=== PATIENT | male | born 1955 | race Hispanic/Latino ===

== ENCOUNTER → 2021-03-30 | Outpatient (CLI) | payer MEDICARE | END | disposition home or self-care (01) | LOC: RAH 08:28 | PROVIDERS: ATTEND Internal Medicine | DX: I08.3 Combined rheumatic disorders of mitral, aortic and tricuspid valves (principal); I10 Essential (primary) hypertension; E78.5 Hyperlipidemia, unspecified; Z87.891 Personal history of nicotine dependence; I77.810 Thoracic aortic ectasia | CPT/HCPCS: 93306; 93356 ==

== ENCOUNTER → 2025-03-25 | Outpatient (CLI) | payer OTHER, MEDICAID ==
--- NOTE | 2025-03-25 15:38 | HMCIMG ---
SHOULDER COMP 2+VWS LT REASON: Pain in right shoulder; Pain in left shoulder TECHNIQUE: 2 views were obtained. FINDINGS: There is no evidence of fracture or dislocation. There is no joint effusion. The soft tissues appear unremarkable. There is no evidence of a radiopaque foreign body. There are 3 tacking device seen in the lateral aspect of the left humeral head. There is mild osteopenia. The AC joint appears to be normal. IMPRESSION: No acute findings. Osteopenia
--- NOTE | 2025-03-25 15:38 | HMCIMG ---
SHOULDER COMP 2+VWS RT REASON: Pain in right shoulder; Pain in left shoulder TECHNIQUE: 2 views were obtained. FINDINGS: There is no evidence of fracture or dislocation. There is no joint effusion. The soft tissues appear unremarkable. There is no evidence of a radiopaque foreign body. The right AC joint appears normal. There is osteopenia IMPRESSION: No acute findings. Osteopenia
--- NOTE | 2025-03-25 15:53 | HMCIMG ---
Lumbar spine series including lateral flexion and extension views Comparison Study: none History: Radiculopathy, lumbar region Findings: Exam of the lumbosacral spine demonstrates no evidence of fracture, subluxation, or significant degenerative change. There is dextroscoliosis of the lumbar spine with the apex at L3.. The lateral flexion and extension views demonstrate no abnormal motion. There are spondylitic changes and degenerative changes of the facet joints. The disc spaces are intact. There are marginal spur suggesting of osteoarthritic changes. The facet joints are preserved without significant degenerative changes Bone mineralization is normal. Impression: Dextroscoliosis of the lumbar spine with the apex at L3. No abnormal motion on flexion-extension lateral views. There are degenerative changes as noted.
--- NOTE | 2025-03-25 15:56 | HMCIMG ---
KNEE/PATELLA 1-2VWS LT REASON: Pain in right knee; Pain in left knee TECHNIQUE: 2 views were obtained. FINDINGS: There is no evidence of fracture or dislocation. There is a suprapatellar joint effusion.. The soft tissues appear unremarkable. There is no evidence of a radiopaque foreign body. Is left knee arthroplasty which appears to be anatomical position. IMPRESSION: No acute findings. Suprapatellar joint effusion. I would recommend ultrasound with possible arthrocentesis Status post left knee arthroplasty which appears to be anatomical position.
--- NOTE | 2025-03-25 15:57 | HMCIMG ---
KNEE/PATELLA 1-2VWS RT REASON: Pain in right knee; Pain in left knee TECHNIQUE: 2 views were obtained. FINDINGS: There is no evidence of fracture or dislocation. There is suprapatellar joint effusion. The soft tissues appear unremarkable. There is no evidence of a radiopaque foreign body. There is right knee arthroplasty which appears to be anatomical position. IMPRESSION: No acute findings . Suprapatellar joint effusion. Status post right knee arthroplasty in anatomical position.
--- NOTE | 2025-03-25 15:58 | HMCIMG ---
Exam: CERVICAL SPINE 2 VIEWS REASON: Radiculopathy, cervical region TECHNIQUE: 3 views were obtained. FINDINGS: There are normal appearing vertebral bodies there is mild disc disease with loss of disc height at C6-C7 followed by C5-C6.. The remaining intervertebral disc space appears to be intact.. There are no visible fractures. Soft tissues appear unremarkable.There is hypolordosis cervical spine suggesting muscle spasm. IMPRESSION: 1. Mild disc disease with loss of disc height at C5-C6 and C6-C7. 2. Hypolordosis cervical spine suggesting of muscle spasm 3. No acute fracture or malalignment
== END | disposition home or self-care (01) ==
LOC: RAH 13:02
PROVIDERS: ATTEND Anesthesiology
DX: M47.26 Other spondylosis with radiculopathy, lumbar region (principal); M41.86 Other forms of scoliosis, lumbar region; M85.811 Other specified disorders of bone density and structure, right shoulder; M85.812 Other specified disorders of bone density and structure, left shoulder; M25.561 Pain in right knee; M25.562 Pain in left knee; M25.512 Pain in left shoulder; M25.511 Pain in right shoulder; M25.461 Effusion, right knee; M25.462 Effusion, left knee; Z96.653 Presence of artificial knee joint, bilateral
CPT/HCPCS: 72040; 72114; 73030; 73560